=== PATIENT | female | born 1930 | race Caucasian/White ===

== ENCOUNTER 2017-03-05 20:18 | Emergency (ER) | payer MEDICARE, BC ==
--- NOTE | 2017-03-05 21:06 | EDM.PDOC ---
ED HPI GENERAL MEDICAL PROBLEM - General Chief Complaint: Neurological Problem Stated Complaint: PAIN /NUMB LT HAND Time Seen by Provider: 03/05/17 20:45 Source of Information: Reports: Patient, RN - History of Present Illness INITIAL COMMENTS - FREE TEXT/NARRATIVE: She presents with recent pain left hand and numbness fingers left hand. history of HTN no history of stroke no history of OR no history of DM Left Lower Arm Pain Score (Numeric/FACES): 8 - Related Data Allergies Allergy/AdvReac Type Severity Reaction Status Date / Time Sulfa (Sulfonamide Allergy Cannot Verified 03/05/17 20:37 Antibiotics) Remember Home Meds: Home Meds Docusate Sodium [Colace] 1 tab PO DAILY 03/05/17 [History] Fesoterodine Fumarate [Toviaz] 1 tab PO DAILY 03/05/17 [History] Meclizine [Antivert] 12.5 mg PO BID 03/05/17 [History] Multivitamin [Multi-Vitamin Daily] 1 tab PO DAILY 03/05/17 [History] Triamterene/Hydrochlorothiazid [Triamterene-HCTZ 37.5-25 MG] 1 each PO DAILY [History] atorvaSTATin [Lipitor] 20 mg PO BEDTIME 03/05/17 [History] prednisoLONE Acetate [Pred Forte 1% Ophth Susp] 1 drop EYEBOTH TID 03/05/17 [ History] Past Medical History Cardiovascular History: Reports: High Cholesterol, Hypertension. Denies: CAD, Heart Failure, OR Gastrointestinal History: Denies: Cirrhosis Neurological History: Denies: Alzheimers Disease, CVA Endocrine/Metabolic History: Denies: Diabetes, Type II ED ROS GENERAL - Review of Systems Review Of Systems: See Below Constitutional: Denies: Fever ED EXAM, NEURO - Physical Exam Exam: See Below Text/Narrative:: alert conversant ; oriented stable gait no facial droop normal speech left hand: tenderness over PIPs and DIPs with pain in these joints with full flexion / making a fist swelling mcps , pcps , dips normal distal perfusion no lateralizing motor deficit Course - Vital Signs Last Recorded V/S: Last Vital Signs Temp 98.3 F 03/05/17 20:32 Pulse 89 03/05/17 20:32 Resp 16 03/05/17 20:32 BP 196/86 H 10/29/17 20:32 Pulse Ox 97 03/05/17 20:32 - Orders/Labs/Meds Meds: Medications Discontinued Medications Generic Name Dose Route Start Last Admin Trade Name Luda PRN Reason Stop Dose Admin Tramadol HCl 100 mg 03/05/17 21:07 Ultram PO 03/05/17 21:08 ONETIME ONE - Re-Assessments/Exams Free Text/Narrative Re-Assessment/Exam: 03/05/17 20:54 i explained etiology of numbness in fingers likely related to swelling around pips. Departure - Departure Time of Disposition: 20:55 Disposition: Home, Self-Care 01 Condition: Good, Fair Clinical Impression: Osteoarthritis, Hypertension - Discharge Information Referrals: Johnathan Durant MD [Primary Care Provider] - Forms: ED Department Discharge Additional Instructions: tylenol as needed avoid anti inflammatories because of risk of worsening HTN with ultram watch for symptoms of lightheadedness, falling or constipation or drowsiness. tramadol may be habit forming. no known history of seizures reported. recheck with your doctor this week.
[2017-03-05] MEDS ORDERED: traMADol 50 MG Tab PO ONE (21:07)
== END 2017-03-05 21:41 | disposition home or self-care (01) ==
LOC: MW.ED 20:18
DX: M19.042 Primary osteoarthritis, left hand (principal); I10 Essential (primary) hypertension; Z88.2 Allergy status to sulfonamides; Z79.899 Other long term (current) drug therapy
CPT/HCPCS: 99283; A9270; 99281

== ENCOUNTER 2017-03-07 09:29 | Emergency (ER) | payer MEDICARE, BC ==
--- NOTE | 2017-03-07 09:47 | EDM.PDOC ---
ED HPI GENERAL MEDICAL PROBLEM - General Chief Complaint: Upper Extremity Injury/Pain Stated Complaint: LEFT AND PAIN AND SWOLLEN Time Seen by Provider: 03/07/17 09:45 - History of Present Illness INITIAL COMMENTS - FREE TEXT/NARRATIVE: HISTORY AND PHYSICAL: History of present illness: Patient is an 87-year-old female with history of osteoarthritis who presents with concern of left hand pain and swelling she's been seen in the ER prior for this and also by her private doctor she is put on tramadol and her private doctor suggested if this doesn't improve we might have to put her on a short course of steroids she has a call out to him and is awaiting a response. She denies fever chills nausea vomiting trauma or other concerns she did have recent x-ray that was remarkable for degenerative joint disease Review of systems: As per history of present illness and below otherwise all systems reviewed and negative. Past medical history: As per history of present illness and as reviewed below otherwise noncontributory. Surgical history: As per history of present illness and as reviewed below otherwise noncontributory. Social history: No reported history of drug or alcohol abuse. Family history: As per history of present illness and as reviewed below otherwise noncontributory. Physical exam: HEENT: Atraumatic, normocephalic, pupils reactive, negative for conjunctival pallor or scleral icterus, mucous membranes moist, throat clear, neck supple, nontender, trachea midline. Lungs: Clear to auscultation, breath sounds equal bilaterally, chest nontender. Heart: S1S2, regular, negative for clicks, rubs, or JVD. Abdomen: Soft, nondistended, nontender. Negative for masses or hepatosplenomegaly. Negative for costovertebral tenderness. Pelvis: Stable nontender. Genitourinary: Deferred. Rectal: Deferred. Extremities: Atraumatic, negative for cords or calf pain. Neurovascular unremarkable. Left hand has swelling and arthritic changes noted no erythema no warmth neurovascular exams unremarkable Neuro: Awake, alert, oriented. Cranial nerves II through XII unremarkable. Cerebellum unremarkable. Motor and sensory unremarkable throughout. Exam nonfocal. Diagnostics: None Therapeutics: None Impression: #1 degenerative joint disease Definitive disposition and diagnosis as appropriate pending reevaluation and review of above. Left Hand Pain Score (Numeric/FACES): 8 - Related Data Allergies Allergy/AdvReac Type Severity Reaction Status Date / Time Sulfa (Sulfonamide Allergy Cannot Verified 03/05/17 20:37 Antibiotics) Remember Home Meds: Home Meds Docusate Sodium [Colace] 1 tab PO DAILY 03/05/17 [History] Fesoterodine Fumarate [Toviaz] 1 tab PO DAILY 03/05/17 [History] Meclizine [Antivert] 12.5 mg PO BID 03/05/17 [History] Multivitamin [Multi-Vitamin Daily] 1 tab PO DAILY 03/05/17 [History] Triamterene/Hydrochlorothiazid [Triamterene-HCTZ 37.5-25 MG] 1 each PO DAILY [History] atorvaSTATin [Lipitor] 20 mg PO BEDTIME 03/05/17 [History] prednisoLONE Acetate [Pred Forte 1% Ophth Susp] 1 drop EYEBOTH TID 03/05/17 [ History] Past Medical History Cardiovascular History: Reports: High Cholesterol, Hypertension Gastrointestinal History: Denies: Cirrhosis Musculoskeletal History: Reports: Arthritis Neurological History: Denies: Alzheimers Disease, CVA Other Neuro History: BPV - Infectious Disease History Infectious Disease History: Reports: Chicken Pox, Shingles Social & Family History - Tobacco Use Smoking Status *Q: Never Smoker Used Tobacco, but Quit: Yes Month Tobacco Last Used: 1976 Second Hand Smoke Exposure: No - Caffeine Use Caffeine Use: Reports: Coffee - Recreational Drug Use Recreational Drug Use: No Review of Systems - Review of Systems Review Of Systems: ROS reveals no pertinent complaints other than HPI. ED EXAM, GENERAL - Physical Exam Exam: See Below (see dictation) Departure - Departure Time of Disposition: 09:47 Disposition: Home, Self-Care 01 Condition: Good Clinical Impression: Degenerative joint disease - Discharge Information Additional Instructions: The following information is given to patients seen in the emergency department who are being discharged to home. This information is to outline your options for follow-up care. We provide all patients seen in our emergency department with a follow-up referral. The need for follow-up, as well as the timing and circumstances, are variable depending upon the specifics of your emergency department visit. If you don't have a primary care physician on staff, we will provide you with a referral. We always advise you to contact your personal physician following an emergency department visit to inform them of the circumstance of the visit and for follow-up with them and/or the need for any referrals to a consulting specialist. The emergency department will also refer you to a specialist when appropriate. This referral assures that you have the opportunity for followup care with a specialist. All of these measure are taken in an effort to provide you with optimal care, which includes your followup. Under all circumstances we always encourage you to contact your private physician who remains a resource for coordinating your care. When calling for followup care, please make the office aware that this follow-up is from your recent emergency room visit. If for any reason you are refused follow-up, please contact the [facility] emergency department at and asked to speak to the emergency department charge nurse. Continue current medicines follow up with private medical doctor 1-2 days return as needed as discussed
== END 2017-03-07 10:21 | disposition home or self-care (01) ==
LOC: MW.ED 09:29
DX: M19.042 Primary osteoarthritis, left hand (principal); I10 Essential (primary) hypertension; E78.00 Pure hypercholesterolemia, unspecified; G30.9 Alzheimer's disease, unspecified; F02.80 Dementia in other diseases classified elsewhere, unspecified severity, without behavioral disturbance, psychotic disturbance, mood disturbance, and anxiety; Z87.891 Personal history of nicotine dependence; Z88.2 Allergy status to sulfonamides; Z79.899 Other long term (current) drug therapy
CPT/HCPCS: 99282; 99283